=== PATIENT | female | born 1985 | race Caucasian/White ===

== ENCOUNTER 2017-01-18 06:14 | Inpatient (IN) | payer OTHER ==
[~2017-01-18] VITALS: Ht 177.8 cm; Wt 83.0 kg
[2017-01-18] MEDS ORDERED: LIDOCAINE 1%, 20ML ONE (07:24)
[2017-01-18] MEDS ORDERED: MISOPROSTOL 200 MCG TABLET ONE (07:24)
[2017-01-18] MEDS ORDERED: OXYTOCIN 30U/ 0.9% NaCL 500ML 500 ML ONE (07:24)
[2017-01-18] MEDS ORDERED: NEWBORN KIT ONE (07:24)
[2017-01-18] MEDS: LACTATED RINGERS 1,000 ML IV SCH ×2 (07:45→13:45)
[2017-01-18] MEDS ORDERED: OXYTOCIN 30U/ 0.9% NaCL 500ML 500 ML IV ONE (13:44)
[2017-01-18] MEDS ORDERED: OXYTOCIN 30U/ 0.9% NaCL 500ML 500 ML IV PRN (13:44)
[2017-01-18] MEDS ORDERED: FENTANYL PF 100 MCG/2ML IVPush PRN (14:00)
[2017-01-18] MEDS ORDERED: FENTANYL PF 100 MCG/2ML IV PRN (14:00)
[2017-01-18] MEDS ORDERED: CALCIUM CARBONATE 500 MG TAB.CHEW PO PRN (14:00)
[2017-01-18] MEDS ORDERED: TERBUTALINE 1 MG/ML, 1ML IVPush PRN (14:00)
[2017-01-18] MEDS ORDERED: ONDANSETRON 2MG/ML, 2ML IVPush PRN (14:00)
[2017-01-18] MEDS ORDERED: FENTANYL/BUPIV./NS/PF 250 ML EPIDCONT ONE (18:10)
[2017-01-18] MEDS ORDERED: LACTATED RINGERS 1,000 ML IV SCH (18:52)
[2017-01-18] MEDS ORDERED: FENTANYL/BUPIV./NS/PF 250 ML EPIDCONT SCH (18:52)
[2017-01-18] MEDS ORDERED: EPHEDRINE 50 MG/ML, 1ML IVPush PRN (19:00)
[2017-01-18] MEDS ORDERED: NALOXONE 0.4 MG/ML, 1ML IVPush PRN (19:00)
[2017-01-18] MEDS ORDERED: LACTATED RINGERS 1,000 ML IVBOLUS PRN (19:00)
[2017-01-18] MEDS ORDERED: OXYTOCIN 30U/ 0.9% NaCL 500ML 500 ML IV SCH (20:43)
[2017-01-18] MEDS ORDERED: DOCUSATE 100 MG CAPSULE PO PRN (21:00)
[2017-01-18] MEDS ORDERED: HYDROcodone/APAP 5/325 TABLET PO PRN ×2 (21:00)
[2017-01-18] MEDS ORDERED: METHYLERGONOVINE 0.2 MG/ML IM PRN (21:00)
[2017-01-18] MEDS ORDERED: ONDANSETRON 2MG/ML, 2ML IV PRN (21:00)
[2017-01-18] MEDS ORDERED: MISOPROSTOL 200 MCG TABLET PR PRN (21:00)
[2017-01-18] MEDS ORDERED: IBUPROFEN 600 MG TABLET PO PRN (21:00)
[2017-01-18 22:15] VITALS: BP 130/82
[2017-01-19 01:40] VITALS: BP 123/79
[2017-01-19 04:30] VITALS: BP 124/80
[2017-01-19 07:19] VITALS: BP 114/61
[2017-01-19] MEDS ORDERED: PRENATAL VIT/IRON/FA 1 EACH TABLET PO SCH (09:00)
[2017-01-19 11:30] VITALS: BP 129/81
[2017-01-19 15:48] VITALS: BP 121/77
[2017-01-20 11:08] LABS: ASPARTATE AMINO TRANSFERASE 16 U/L (15-37); BLOOD UREA NITROGEN 8 mg/dL (7-18)
== END 2017-01-19 19:51 | disposition home or self-care (01) | DRG 775 ==
LOC: LDIP 06:14 → 2NW 21:59
PROVIDERS: ADMIT Obstetrics & Gynecology; ATTEND Obstetrics & Gynecology
PROC: 10E0XZZ Delivery of Products of Conception, External Approach (ICD-10-PCS; principal; 2017-01-18)
PROC: 00HU33Z Insertion of Infusion Device into Spinal Canal, Percutaneous Approach (ICD-10-PCS; 2017-01-18)
PROC: 3E0R3CZ (ICD-10-PCS; 2017-01-18)
PROC: 10907ZC Drainage of Amniotic Fluid, Therapeutic from Products of Conception, Via Natural or Artificial Opening (ICD-10-PCS; 2017-01-18)
PROC: 3E033VJ Introduction of Other Hormone into Peripheral Vein, Percutaneous Approach (ICD-10-PCS; 2017-01-18)
DX: O63.0 Prolonged first stage (of labor) (principal); O69.1XX0 Labor and delivery complicated by cord around neck, with compression, not applicable or unspecified; O26.893 Other specified pregnancy related conditions, third trimester; K08.409 Partial loss of teeth, unspecified cause, unspecified class; Z37.0 Single live birth; Z88.0 Allergy status to penicillin; Z3A.39 39 weeks gestation of pregnancy; Z67.21 Type B blood, Rh negative; Z87.59 Personal history of other complications of pregnancy, childbirth and the puerperium
CPT/HCPCS: 36415; 80053; 82570; 84156; 84550; 85025; 86850; 86900; J2590; J3010; J7120